=== PATIENT | female | born 1950 | race Caucasian/White ===

== ENCOUNTER → 2019-08-10 | Day surgery (SDC) | payer OTHER, BC ==
--- NOTE | 2019-08-11 10:53 | OP ---
DATE OF OPERATION: 08/10/2019 PREOPERATIVE DIAGNOSIS: Abnormal left mammography. POSTOPERATIVE DIAGNOSIS: Abnormal left mammography. PROCEDURE: Left stereotactic needle biopsy with clip. SURGEON: Freya Munoz MD ANESTHESIA: Local. COMPLICATIONS: None. This is a sterile procedure. INDICATIONS: Patient presented with a routine screening mammography where the radiologist found some of the calcifications slightly anteriorly in the upper outer left breast were increasing in number; therefore, needle biopsy was recommended. The procedure was discussed with her including need for a clip. PROCEDURE IN DETAIL: Patient was brought to [facility], laid prone on the [place] table. Using the lateral approach, the calcifications in the upper outer left breast were identified. They were sort of scattered loosely. I found a target, and I took some cores from this area once I cleansed with Betadine and anesthetized with 1% lidocaine. Core showed may be some calcifications. Therefore, I re-targeted and put the needle back in the same area, and more samples were taken, and this time the calcifications were seen on the cores. These were sent to Pathology for permanent section. An O-shaped clip was deployed in the area. Hemostasis assured with direct pressure. Steri-Strips were used to close the incision. She tolerated the procedure well and left the breast imaging center in good condition. FREYA MUNOZ M.D. [id number]
--- NOTE | 2019-08-11 16:13 | PATH ---
Surgical Pathology Report Patient Name: NORI ZUNIGA [facility]. Rec. #: [id number] /Age/Gender: 1950 (Age: 68) / F Account: [id number] Location: [facility] Taken: 08/10/2019 Received: 08/10/2019 Reported: 08/11/2019 Physicians: Ileana Gilliland M.D. Specimen(s) Received A: LEFT BREAST SPECIMEN - WITH CALCIFICATIONS B: LEFT BREAST SPECIMEN - WITHOUT CALCIFICATIONS Clinical History Mammographic findings: Microcalcification, suspicious Final Diagnosis A. LEFT BREAST SPECIMEN - WITH CALCIFICATIONS, STEREOTACTIC CORE BIOPSY: BENIGN BREAST TISSUE WITH PROLIFERATIVE FIBROCYSTIC CHANGES INCLUDING USUAL DUCTAL HYPERPLASIA (UDH), ADENOSIS, PAPILLARY AND CYSTIC APOCRINE METAPLASIA, MICROCYSTS, STROMAL FIBROSIS, AND ASSOCIATED MICROCALCIFICATIONS. B. LEFT BREAST SPECIMEN - WITHOUT CALCIFICATIONS, STEREOTACTIC CORE BIOPSY: BENIGN BREAST TISSUE WITH PROLIFERATIVE FIBROCYSTIC CHANGES INCLUDING USUAL DUCTAL HYPERPLASIA (UDH), ADENOSIS, COLUMNAR CELL CHANGE, PAPILLARY AND CYSTIC APOCRINE METAPLASIA, MICROCYSTS, STROMAL FIBROSIS, AND ASSOCIATED MICROCALCIFICATIONS. Electronically Signed Jacques Green M.D. Gross Description A. Received in formalin labeled "left breast with calcifications," are 4 partida-yellow, cylindrical portions of fibroadipose tissue ranging from 0.4-2.0 cm in length and averaging 0.3 cm in diameter. The specimens are submitted in toto in one cassette. B. Received in formalin labeled "left breast without calcifications," are 14 partida-yellow, cylindrical portions of fibroadipose tissue ranging from 1.2-2.8 cm in length and averaging 0.3 cm in diameter. The specimens are submitted in toto in 3 cassettes. Time to formalin fixation: 5 minutes Total formalin fixation time: Approximately 6 hours. 08/10/201908/10/2019
== END | disposition home or self-care (01) ==
LOC: FMAMMOTONE 10:46
PROVIDERS: ATTEND Surgery
PROC: 0HBU3ZX Excision of Left Breast, Percutaneous Approach, Diagnostic (ICD-10-PCS; principal; 2019-08-10)
DX: N60.12 Diffuse cystic mastopathy of left breast (principal); N60.22 Fibroadenosis of left breast; N60.32 Fibrosclerosis of left breast; N60.82 Other benign mammary dysplasias of left breast; N64.89 Other specified disorders of breast; R92.1 Mammographic calcification found on diagnostic imaging of breast
CPT/HCPCS: 19081; 87899; A4648

== ENCOUNTER 2024-06-28 04:13 | Day surgery (SDC) | payer OTHER, BC ==
[2024-06-23 17:18] VITALS: BMI 25.9
[2024-06-28] MEDS ORDERED: ONDANSETRON 4 MG/2 ML VIAL IVPUSH PRN (08:24)
[2024-06-28] MEDS ORDERED: PROPOFOL 60 ML ONE (08:26)
[2024-06-28] MEDS ORDERED: DEXAMETHASONE SOD PHOSPHATE 4 MG/1 ML VIAL ONE (08:26)
[2024-06-28] MEDS ORDERED: MIDAZOLAM HCL 2 MG/2 ML SINGLE DOSE VIAL ONE (08:26)
[2024-06-28] MEDS ORDERED: LIDOCAINE HCL/PF 2% SDV 5ML VIAL ONE (08:26)
[2024-06-28] MEDS ORDERED: LACTATED RINGERS SOLUTION 1,000 ML IV SCH (08:30)
[2024-06-28] MEDS ORDERED: LIDOCAINE HCL 1%, 10 MG/ML (20ML VIAL) ONE ×2 (08:36→09:49)
[2024-06-28] MEDS: LIDOCAINE HCL 1%, 10 MG/ML (20ML VIAL) NR ONE ×4 (08:53→09:42)
[2024-06-28] MEDS ORDERED: ceFAZolin SODIUM 1 GM VIAL ONE (09:12)
[2024-06-28] MEDS: ceFAZolin SODIUM 1 GM VIAL IVPB ONE (09:36)
[2024-06-28 11:25] VITALS: RESP 20
[2024-06-28 12:35] VITALS: BP 130/70; PULSE 70; TEMP 98
== END 2024-06-28 12:15 | disposition home or self-care (01) ==
LOC: JASU-SURG 04:13
PROVIDERS: ATTEND Surgery
PROC: 0HBU0ZX Excision of Left Breast, Open Approach, Diagnostic (ICD-10-PCS; principal; 2024-06-28 09:00)
DX: N64.89 Other specified disorders of breast (principal); N62 Hypertrophy of breast
CPT/HCPCS: 19281; 76098-TC-FY; 88307-TC; 88341-TC; 88342-TC; 94760